=== PATIENT | male | born 1965 | race Caucasian/White ===

== ENCOUNTER → 2016-12-23 | Outpatient (CLI) | payer OTHER ==
[2016-12-23 09:21] LABS: CHLORIDE,CL 108 mmol/L (98-110); SODIUM,NA 138 mmol/L (136-146)
== END ==
LOC: MW.CHFP 07:31
PROVIDERS: ATTEND Nurse Practitioner Family
DX: E11.9 Type 2 diabetes mellitus without complications (principal); E03.9 Hypothyroidism, unspecified
CPT/HCPCS: 36415; 80053; 80061; 83036; 84443

== ENCOUNTER 2018-12-31 07:27 | Day surgery (SDC) | payer OTHER ==
[~2018-12-31 07:27] MED LIST: Lactated Ringers 1,000 ML IV SCH
[2018-12-31] MEDS ORDERED: Propofol 200 MG/20 ML SDV ONE (08:01)
[2018-12-31] MEDS ORDERED: Lidocaine 2% 5 ML SDV ONE (08:01)
[2018-12-31] MEDS ORDERED: Midazolam 1 MG/ML 2 ML SDV ONE (08:01)
[2018-12-31] MEDS ORDERED: Ondansetron 4 MG/2 ML SDV ONE (08:01)
[2018-12-31] MEDS ORDERED: fentaNYL 250 MCG/5 ML SDV ONE (08:02)
[2018-12-31] MEDS ORDERED: 50% Dextrose in Water 50 ML Syringe IVPUSH PRN (08:14)
[2018-12-31] MEDS ORDERED: Albuterol 0.083% 2.5 MG/3 ML Neb Soln NEB PRN (08:14)
[2018-12-31] MEDS ORDERED: Naloxone 0.4 MG/ML Syringe IVPUSH PRN (08:14)
[2018-12-31] MEDS ORDERED: EPINEPHrine 1:10,000 1 MG/10 ML Syringe IVPUSH PRN (08:14)
[2018-12-31] MEDS ORDERED: Atropine 0.1 MG/ML 10 ML Syringe IVPUSH PRN ×2 (08:14)
[2018-12-31] MEDS ORDERED: fentaNYL 100 MCG/2 ML SDV IVPUSH PRN (08:14)
--- NOTE | 2018-12-31 08:23 | PCM.PREANE ---
Preanesthetic Assessment - Anesthesia/Transfusion/Family Hx Anesthesia History: Prior Anesthesia Reaction Other Type of Anesthesia Reaction Comment: was told he was hypertensive after bariatric surgery Family History of Anesthesia Reaction: No Transfusion History: No Prior Transfusion(s) Intubation History: Unknown - Review of Systems General: No Symptoms Pulmonary: No Symptoms Cardiovascular: No Symptoms Gastrointestinal: No Symptoms Neurological: No Symptoms Other: Reports: None - Physical Assessment O2 Sat by Pulse Oximetry: 96 Respiratory Rate: 15 Vital Signs: Last Vital Signs Temp 36.8 C 12/31/18 07:55 Pulse 68 12/31/18 07:55 Resp 15 12/31/18 07:55 BP 127/71 12/31/18 07:55 Pulse Ox 96 12/31/18 07:55 Height: 5 ft 10 in Weight: 86.183 kg ASA Class: 2 Mental Status: Alert & Oriented x3 Airway Class: Mallampati = 2 Dentition: Reports: Normal Dentition Thyro-Mental Finger Breadths: 3 Mouth Opening Finger Breadths: 2 ROM/Head Extension: Full Lungs: Clear to Auscultation, Normal Respiratory Effort Cardiovascular: Regular Rate, Regular Rhythm - Allergies Allergies/Adverse Reactions: Allergies Allergy/AdvReac Type Severity Reaction Status Date / Time melon Allergy Airway Verified 12/29/18 11:09 Tightness - Blood Blood Available: No - Anesthesia Plan Pre-Op Medication Ordered: None - Acknowledgements Anesthesia Type Planned: General Anesthesia Pt an Appropriate Candidate for the Planned Anesthesia: Yes Alternatives and Risks of Anesthesia Discussed w Pt/Guardian: Yes Pt/Guardian Understands and Agrees with Anesthesia Plan: Yes PreAnesthesia Questionnaire HEENT History: Reports: Cataract Gastrointestinal History: Reports: Hiatal Hernia Other Gastrointestinal History: hiatal hernia was repaired during bariatric surgery 2017- lost 105 pounds since Musculoskeletal History: Reports: Arthritis, Back Pain, Chronic Neurological History: Reports: Concussion Endocrine/Metabolic History: Reports: Hypothyroidism - Past Surgical History HEENT Surgical History: Reports: Cataract Surgery GI Surgical History: Reports: Bariatric Procedure, Hernia, Inguinal (right) - SUBSTANCE USE Smoking Status *Q: Former Smoker Tobacco Use Within Last Twelve Months: No Recreational Drug Use History: No - HOME MEDS Home Medications: Home Meds Levothyroxine Sodium [Synthroid] 150 mcg PO QAM 12/29/18 [History] Multivitamin [Daily Multiple Vitamin] 1 tab PO DAILY 12/29/18 [History] Sildenafil Citrate [Sildenafil] 50 - 100 mg PO ASDIRECTED PRN 12/29/18 [History] - CURRENT (IN HOUSE) MEDS Current Meds: Current Medications Albuterol (Proventil Neb Soln) 2.5 mg NEB ONETIME PRN PRN Reason: Wheezing Atropine Sulfate (Atropine 0.1 Mg/Ml) 0.5 mg IVPUSH ASDIRECTED PRN PRN Reason: Hypo-perfusion Atropine Sulfate (Atropine 0.1 Mg/Ml) 1 mg IVPUSH ASDIRECTED PRN PRN Reason: Hypo-Perfusion Dextrose/Water (Dextrose 50% In Water) 50 ml IVPUSH ASDIRECTED PRN PRN Reason: Hypoglycemia Epinephrine HCl (Epinephrine 1:10,000) 1 mg IVPUSH ASDIRECTED PRN PRN Reason: ACLS Guidelines Fentanyl (Sublimaze) 50 - 100 mcg IVPUSH Q5M PRN PRN Reason: Pain Lactated Ringer's (Ringers, Lactated) 1,000 mls @ 125 mls/hr IV ASDIRECTED HUBERT Last Admin: 12/31/18 08:20 Dose: 125 mls/hr Naloxone HCl (Narcan) 0.1 mg IVPUSH ASDIRECTED PRN PRN Reason: Respiratory Depression Discontinued Medications Fentanyl (Sublimaze) Confirm Administered Dose 250 mcg .ROUTE .STK-MED ONE Stop: 12/31/18 08:03 Lidocaine (Xylocaine-Mpf 2%) Confirm Administered Dose 5 ml .ROUTE .STK-MED ONE Stop: 12/31/18 08:02 Midazolam HCl (Versed 1 Mg/Ml) Confirm Administered Dose 2 mg .ROUTE .STK-MED ONE Stop: 12/31/18 08:02 Ondansetron HCl (Zofran) Confirm Administered Dose 4 mg .ROUTE .STK-MED ONE Stop: 12/31/18 08:02 Propofol (Diprivan 20 Ml) Confirm Administered Dose 200 mg .ROUTE .STK-MED ONE Stop: 12/31/18 08:02
[2018-12-31] MEDS ORDERED: Glycopyrrolate 0.2 MG/ML SDV ONE ×2 (09:25)
[2018-12-31] MEDS ORDERED: ePHEDrine 50 MG/ML SDV ONE (09:28)
[2018-12-31] MEDS ORDERED: Morphine 10 MG/ML Syringe IVPUSH PRN (10:03)
[2018-12-31] MEDS ORDERED: Acetaminophen/HYDROcodone 325-5 MG Tab PO PRN (10:03)
--- NOTE | 2018-12-31 10:05 | PCM.OPNOTE ---
- General Post-Op/Procedure Note Date of Surgery/Procedure: 12/31/18 Operative Procedure(s): Excisional biopsy left inguinal lymphadenopathy Pre Op Diagnosis: Bilateral inguinal adenopathy Post-Op Diagnosis: Same Anesthesia Technique: General LMA (ASA II) Primary Surgeon: Eliezer Jarvis Associate Professor Of History: Vicky Vasquez Fluid Replacement, Intraop: 1,100 EBL in mLs: 5 Condition: Good Free Text/Narrative:: DICTATION [id number] CPT CODE [id number]
[2018-12-31] MEDS ORDERED: Lactated Ringers 1,000 ML IV SCH (10:15)
--- NOTE | 2018-12-31 10:49 | OR ---
SURGEON: Eliezer Jarvis M.D. DATE OF PROCEDURE: 12/31/2018 OPERATION PERFORMED: Excisional biopsy of left inguinal lymph node. PRIMARY SURGEON: Eliezer Jarvis M.D. AUTO BODY MECHANIC: Passenger Conductor: DIVYA Calloway. ANESTHESIA: General. ASA CLASSIFICATION: II. PREOPERATIVE DIAGNOSIS: Bilateral inguinal lymphadenopathy. POSTOPERATIVE DIAGNOSIS: Bilateral inguinal lymphadenopathy. ESTIMATED BLOOD LOSS: 5 mL. INTRAOPERATIVE FLUID REPLACEMENT: 1100 mL of crystalloid. DESCRIPTION OF PROCEDURE: The patient was taken to the operating room and placed on the operating table in the supine position. Time-out was called for appropriate identification of the patient and procedure. General anesthesia was induced. Thigh-high TEDs and sequential compression boots were placed. The abdomen was then prepped with DuraPrep solution and sterile drapes were applied. The skin directly overlying the lymph node was infiltrated with 10 mL of 0.5% Marcaine solution. The skin incision was made and deepened through the subcutaneous tissue obtaining hemostasis with the use of electrocautery. Using electrocautery, the lymph node on the left side was dissected out. Bleeding sites were electrocoagulated. The specimen was sent as a touch prep to the pathology department. The wound was then inspected for hemostasis and small bleeding sites were electrocoagulated. The Annalise's fascia was then closed with 3-0 Vicryl. The skin was closed in a subcuticular fashion with 3-0 Monocryl. Half-inch Steri-Strips were placed across the skin, which was then dressed with a sterile Tegaderm pad. Sponge, needle, and instrument counts were all correct. Following emergence from anesthesia and extubation, the patient was taken to recovery room in stable condition. MESFIN / JOSE /[id number]
--- NOTE | 2018-12-31 10:57 | PCM48HPAN ---
Post Anesthesia Note - EVALUATION WITHIN 48HRS OF ANESTHETIC Vital Signs in Normal Range: Yes Patient Participated in Evaluation: Yes Respiratory Function Stable: Yes Airway Patent: Yes Cardiovascular Function Stable: Yes Hydration Status Stable: Yes Pain Control Satisfactory: Yes Nausea and Vomiting Control Satisfactory: Yes Mental Status Recovered: Yes Resp Rate: 12 - COMMENTS/OBSERVATIONS Free Text/Narrative:: No anesthesia problems
== END 2018-12-31 11:00 | disposition home or self-care (01) ==
LOC: MW.SDS 07:27
PROVIDERS: ATTEND Surgery
DX: R59.0 Localized enlarged lymph nodes (principal); E03.9 Hypothyroidism, unspecified; K42.9 Umbilical hernia without obstruction or gangrene; M62.08 Separation of muscle (nontraumatic), other site; N52.9 Male erectile dysfunction, unspecified; Z91.018 Allergy to other foods; Z98.84 Bariatric surgery status; Z87.891 Personal history of nicotine dependence; Z79.899 Other long term (current) drug therapy
CPT/HCPCS: 38531; J2001; J2250; J2405; J2704; J3010; J3490; J7120; 00400